=== PATIENT | male | born 1965 | race Caucasian/White ===

== ENCOUNTER 2022-07-02 08:07 | Outpatient (REF) | payer BC, SELFPAY ==
[2022-07-02 11:02] LABS: MANUAL DIFF FLAG NO
[2022-07-02 11:27] LABS: Basophils Percent Auto 0.7 % (0-2); Eosinophils Absolute Auto 0.2 X10*3/uL (0.0-0.4); Hematocrit 43.3 % (42.0-52.0); Imm Gran Abs Auto 0.01 X10*3/uL (0.00-0.03); Imm Gran Pct Auto 0.2 % (0.0-0.4); Lymphocytes Absolute Auto 2.1 X10*3/uL (1.2-4.9); Mean Corpuscular HGB Conc 34.6 g/dl (31.0-36.0); Mean Corpuscular Hemoglobin 35.1 pg (27.0-33.0); Mean Corpuscular Volume 101.4 fL (80.0-98.0); Monocytes Absolute Auto 0.5 X10*3/uL (0.1-1.2); Neutrophils Absolute Auto 1.5 x10*3/uL (2.0-8.3); Neutrophils Percent Auto 35.1 % (45-73); Platelet Count 197 X10*3/uL (160-400); Red Blood Count 4.27 X10*6/uL (4.60-5.80); Red Cell Distribution Width 12.6 % (11.0-16.0); White Blood Count 4.2 X10*3/uL (4.8-10.8)
[2022-07-02 11:53] LABS: Alanine Aminotransferase 73 U/L (0-40); Albumin Level 4.5 g/dL (3.5-5.0); Alkaline Phosphatase 65 U/L (39-117); Anion Gap 14 (12-20); Aspartate Amino Transferase 43 U/L (5-37); Bilirubin Total 0.8 mg/dL (0.0-1.0); Blood Urea Nitrogen 25 mg/dL (9-16); Calcium 9.5 mg/dL (8.4-10.2); Carbon Dioxide 25 mmol/L (22-29); Chloride 104 mmol/L (96-108); Cholesterol 274 mg/dL; Estimated Glomerular Filt Rate > 60; Glucose Fasting 125 mg/dL (60-99); HDL Cholesterol 45 mg/dL; LDL Cholesterol Calculated 201 mg/dl; Potassium 5.1 mmol/L (3.3-5.1); Sodium 138 mmol/L (135-145); Total Protein 7.5 g/dL (6.5-8.0); Triglycerides 143 mg/dL
[2022-07-02 12:01] LABS: TSH reflex Free T4 3.78 uIU/mL (0.32-4.0)
[2022-07-02 12:17] LABS: Rheumatoid Factor < 15.0 IU/mL (<15.0)
[2022-07-02 12:20] LABS: Erythrocyte Sedimentation Rate 7 MM/HR (0-15)
[2022-07-04 15:23] LABS: CRP High Sensitivity 1.7 mg/L
== END 2022-07-02 08:08 | disposition home or self-care (01) ==
LOC: HO.WFDLDS 08:07
PROVIDERS: Visit Provider Family Medicine
DX: Z00.00 Encounter for general adult medical examination without abnormal findings (principal); Z12.5 Encounter for screening for malignant neoplasm of prostate; M19.90 Unspecified osteoarthritis, unspecified site
CPT/HCPCS: 36415; 80053; 80061; 84153; 84443; 85025; 85652; 86141; 86431

== ENCOUNTER 2022-10-18 08:41 | Outpatient (REF) | payer BC, SELFPAY ==
[2022-10-18 12:20] LABS: Estimated Average Glucose 126 mg/dL
[2022-10-18 12:32] LABS: Alanine Aminotransferase 53 U/L (0-40); Albumin Level 4.4 g/dL (3.5-5.0); Alkaline Phosphatase 68 U/L (39-117); Anion Gap 12 (12-20); Aspartate Amino Transferase 35 U/L (5-37); Bilirubin Total 1.5 mg/dL (0.0-1.0); Blood Urea Nitrogen 16 mg/dL (9-16); Calcium 9.5 mg/dL (8.4-10.2); Carbon Dioxide 26 mmol/L (22-29); Chloride 107 mmol/L (96-108); Cholesterol 123 mg/dL; Estimated Glomerular Filt Rate > 60; Glucose Fasting 108 mg/dL (60-99); HDL Cholesterol 32 mg/dL; LDL Cholesterol Calculated 76 mg/dl; Potassium 5.1 mmol/L (3.3-5.1); Sodium 140 mmol/L (135-145); Total Protein 6.9 g/dL (6.5-8.0); Triglycerides 75 mg/dL
== END 2022-10-18 08:42 | disposition home or self-care (01) ==
LOC: HO.WFDLDS 08:41
PROVIDERS: Visit Provider Family Medicine
DX: Z00.00 Encounter for general adult medical examination without abnormal findings (principal); E78.5 Hyperlipidemia, unspecified; R73.01 Impaired fasting glucose; R74.8 Abnormal levels of other serum enzymes
CPT/HCPCS: 36415; 80053; 80061; 83036

== ENCOUNTER 2023-07-19 08:02 | Outpatient (REF) | payer BC, SELFPAY ==
[2023-07-19 09:18] LABS: Alanine Aminotransferase 69 U/L (0-40); Albumin Level 4.3 g/dL (3.5-5.0); Alkaline Phosphatase 96 U/L (39-117); Anion Gap 12 (12-20); Aspartate Amino Transferase 43 U/L (5-37); Bilirubin Total 0.9 mg/dL (0.0-1.0); Blood Urea Nitrogen 13 mg/dL (9-16); Calcium 9.1 mg/dL (8.4-10.2); Carbon Dioxide 26 mmol/L (22-29); Chloride 106 mmol/L (96-108); Cholesterol 148 mg/dL (<200); Estimated Average Glucose 148 mg/dL; Estimated Glomerular Filt Rate > 60; Glucose Fasting 133 mg/dL (60-99); HDL Cholesterol 37 mg/dL (>40); Hemoglobin A1c % 6.8 % (<6.0); LDL Cholesterol Calculated 97 mg/dL (<100); Potassium 4.4 mmol/L (3.3-5.1); Sodium 140 mmol/L (135-145); Total Protein 7.2 g/dL (6.5-8.0); Triglycerides 72 mg/dL (<150)
[2023-07-19 09:49] LABS: Microalbum/Creatinine Ratio Ur 8.1 ug/mg cr (<30)
== END 2023-07-19 08:03 | disposition home or self-care (01) ==
LOC: HO.LAB 08:02
PROVIDERS: PCP Family Medicine; Visit Provider Family Medicine
DX: Z00.00 Encounter for general adult medical examination without abnormal findings (principal); R73.01 Impaired fasting glucose; I10 Essential (primary) hypertension
CPT/HCPCS: 36415; 80053; 80061; 82043; 82570; 83036

== ENCOUNTER 2023-08-15 15:46 | Outpatient (AMB) | payer BC, SELFPAY ==
--- NOTE | 2023-08-15 15:40 | MHC.PC.OV ---
Intake Visit Reasons: f/u labs [phone] Intake Note: Patient is calling to follow up on his labs today. Allergies No Known Allergies Allergy (Verified 08/15/23 15:42) Tobacco use date assessed: 08/15/23 [facility] Surgical History H/O discectomy Social History Housing: House Patient Tobacco Use Status: Never used Tobacco e-Cigarette/Vaping Use: Never Used Second Hand Smoke Exposure: No service: No Current occupational status: employed Current occupational exposures/hazards: No Cognitive needs: No Hearing needs: No Vision needs: No Questionnaire Thrive Questionnaire Date Thrive assessed: 09/24/22 LICHA-7 AMB Questionnaire LICHA-7 Date LICHA - 7 assessed: 09/24/22 Source: Developed by Drs. Catarino Latham, Sarah Arnold, Hans Martinez and colleagues, with an educational danica from [employer]. Review of Systems Const Denies chills, Denies fatigue, Denies fever(s), Denies headache(s) and Denies weakness ENT Denies dizziness and Denies headache(s) Card Denies chest pain, Denies lightheadedness, Denies dyspnea and Denies other (Palpitations) Resp Denies cough, Denies dyspnea, Denies wheezing and Denies other ( shortness of breath) Musc Denies numbness and Denies tingling Neuro Denies dizziness, Denies headache(s), Denies numbness, Denies tingling, Denies paresthesias and Denies weakness Psych Denies anxiety and Denies depression Endo Denies fatigue Aller/Immun Denies wheezing Physical exam (Primary Care) Tobacco/Smoking Status: Tobacco use Status Tobacco use date assessed 08/15/23 08/15/23 15:45 Patient Tobacco Use Status Never used Tobacco 08/15/23 15:45 e-Cigarette/Vaping Use Never Used 08/15/23 15:45 Thrive Assessment: Date of Thrive Assessment Date Thrive assessed 09/24/22 08/15/23 15:45 Const Other: Telemedicine,?audio?only.??No?exam Telehealth Telehealth Location of provider rendering services: practice address Location of patient: address on file Patient Identification confirmed using: Name, : Yes Telehealth method: voice only Patient verbally consented to treatment: Yes Patient verbally consented to billing insurance company: Yes Patient informed of any privacy concerns related to visit: Yes Minutes spent on Phone/Video with Pt.: 13 Assessment and Plan Assessment & Plan (1) Diabetes: Code(s): E11.9 - Type 2 diabetes mellitus without complications Plan: A1c?has?increased?to?6.8%; diabetes?range Patient?has?other?comorbidities?such?as?hyperlipidemia?and?myocarditis. Sent?script?for?metformin?250?mg?b.i.d. Encouraged?a?diet?low?in?sugars?and?starches Encouraged?weight?loss?and?exercise. (2) Hyperlipidemia: Code(s): E78.5 - Hyperlipidemia, unspecified Plan: LDL?cholesterol?is?97.??Recommended?goal?less?than?70 He?is?on?atorvastatin?40?mg?daily?and?I?am?increasing?this?to?80?mg?daily He?will?let?me?know?if?he?has?any?problems Encouraged?a?diet?low?in?saturated?fats?and?cholesterol Encouraged?weight?loss?and?exercise (3) Elevated liver enzymes: Code(s): R74.8 - Abnormal levels of other serum enzymes Plan: Liver?enzymes?have?risen Likely?fatty?liver?disorder?but?this?has?been?ongoing?and?I?am?ordering?an?ultrasound Encouraged?weight?loss Orders: Orders US abdomen diaz w elastography Today R74.8 - Abnormal levels of other serum enzymes Medications: New metformin 250 mg (1/2 x 500 mg) PO BID 30 tabs 2RF 30 days Changed From atorvastatin 40 mg PO BEDTIME 30 days 30 tabs 1RF To atorvastatin 80 mg PO BEDTIME 90 tabs 2RF 90 days Coding Level of Care Code Tele Est Pt Level 2 (80065) Diagnoses Diabetes E11.9 Hyperlipidemia E78.5 Elevated liver enzymes R74.8
== END 2023-08-15 16:45 ==
LOC: HO.HMGFM 15:46
PROVIDERS: PCP Family Medicine; Visit Provider Family Medicine
DX: E11.9 Type 2 diabetes mellitus without complications (principal); E78.5 Hyperlipidemia, unspecified; R74.8 Abnormal levels of other serum enzymes
CPT/HCPCS: 99442

== ENCOUNTER 2023-10-02 12:49 | Outpatient (REF) | payer BC, SELFPAY ==
--- NOTE | ~2023-10-02 | US_ITS ---
EXAMINATION: US ABDOMEN LIMITED WITH LIVER ELASTOGRAPHY CLINICAL INFORMATION: Abnormal levels of serum enzymes. COMPARISON: None available. TECHNIQUE: Real-time imaging of the abdominal viscera. Noninvasive ultrasound liver fibrosis assessment is performed using Gosia ElastPQ point quantification shear wave elastography (2D-SWE) with a C5-2 MHz transducer. Multiple elastography samples are obtained. FINDINGS: PANCREAS: Largely obscured by overlying bowel gas. LIVER: Normal. The liver demonstrates normal size, contour and echogenicity. No focal lesion or intrahepatic biliary duct dilatation. The right lobe measures 14.0 cm in length. The left lobe measures 9.2 cm in length. Portal flow is towards the liver (hepatopetal). Shear wave liver elastography median stiffness is 1.34 m/s (reference: normal median stiffness is 1.3 m/s or less). IQR/median stiffness to assess sampling precision is 0.05 (reference: good quality data set is IQR/median stiffness of 0.15 or less). GALLBLADDER: Normal. The gallbladder is physiologically distended without evidence of stones, sludge, polyps, wall thickening or pericholecystic fluid. COMMON BILE DUCT: Normal in caliber measuring 0.3 cm in diameter. RIGHT KIDNEY: At the lower pole, a 1.5 cm benign, simple cyst is seen, which requires no imaging follow-up. No hydronephrosis. No renal calculi or focal parenchymal lesions. The kidney measures 10.9 cm in maximum dimension. FREE FLUID: None. US/US abdomen diaz w elastography IMPRESSION: 1. There is generalized increase in hepatic echotexture, consistent with fatty infiltration or hepatocellular disease. Please correlate clinically. No focal hepatic mass or intrahepatic biliary dilatation is seen. 2. Liver elastography: In the absence of other known clinical signs, measurements rule out compensated advanced chronic liver disease. If there are known clinical signs, further testing may be needed for confirmation. 3. Technically limited ultrasound examination of the pancreas. REFERENCE: Society of Radiologists in Ultrasound Liver Stiffness Thresholds (2020): LIVER STIFFNESS THRESHOLDS: *Liver Stiffness equal or less than 1.3 m/s: High probability of being normal. *Liver Stiffness less than 1.7 m/s: In the absence of other known clinical signs, rules out compensated advanced chronic liver disease. *Liver Stiffness 1.7-2.1 m/s: Suggestive of compensated advanced chronic liver disease but need further test for confirmation. *Liver Stiffness over 2.1 m/s: Rules in compensated advanced chronic liver disease. *Liver Stiffness over 2.4 m/s: Suggestive of clinically significant portal hypertension. QUALITY OF DATA SET: *IQR/Median value equal or less than 0.15 implies a quality data set. *IQR/Median value over 0.15 implies a poor quality data set. SIGNIFICANT CHANGE FROM PRIOR EXAM: Significant change if liver stiffness measurement is 10% or greater from prior exam. OTHER CONSIDERATIONS: The stage of liver fibrosis may be overestimated in the setting of acute hepatitis, liver inflammation, elevated liver function tests, hepatic vascular congestion, obstructive cholestasis, non-fasting state, and infiltrative diseases such as amyloidosis and lymphoma. In some patients with NAFLD, the liver stiffness thresholds for compensated advanced chronic liver disease may be lower. In causes other than viral hepatitis and NAFLD, liver stiffness thresholds are not well established.
== END 2023-10-02 12:50 | disposition home or self-care (01) ==
LOC: HO.US 12:49
PROVIDERS: PCP Family Medicine; Visit Provider Family Medicine
DX: R74.8 Abnormal levels of other serum enzymes (principal)
CPT/HCPCS: 76705; 76981

== ENCOUNTER 2024-07-20 16:30 | Outpatient (AMB) | payer BC, SELFPAY ==
--- NOTE | 2024-07-20 16:32 | A.OFFPC_ITS ---
Vital Signs 07/20/24 16:36 Height 6 ft Weight 223 lb 6 oz BMI 30.3 BP 116/70 Blood Pressure Location Rt brachial Position Sitting Respiration 16 Pulse 57 Pulse Source Pulse Oximeter Temp 98.2 F Temp Source Oral Pulse Oximetry (%) 98 Oxygen Delivery Method Room Air Intake Visit Reasons: Med F/Up Intake Note: med follow up Allergies No Known Allergies Allergy (Verified 07/20/24 16:36) Tobacco use date assessed: 08/15/23 HPI Med F/Up HPI Details 58 y/o male presents to f/u chronic cond itions. Had started him on metformin for new diagnosis of diabetes. A1c was 6.8%. Had increased artovastatin as he has hx of HLD and myocarditis and LDL cholesterol was 97. No recent labs to review. Blood pressure today 138/54, 68p. He is on lisinopril 20mg, metoprolol [place] val[place]-hydrochlorothiazide 25-12.5mg PFSH Surgical History H/O discectomy Social History Housing: House Patient Tobacco Use Status: Never used Tobacco e-Cigarette/Vaping Use: Never Used Second Hand Smoke Exposure: No service: No Current occupational status: employed Current occupational exposures/hazards: No Cognitive needs: No Hearing needs: No Vision needs: No Questionnaire PHQ-9 Over the last 2 weeks, how often have you been bothered by any of the following problems? 1. Little interest or pleasure in doing things: not at all 2. Feeling down, depressed, or hopeless: not at all 3. Trouble falling or staying asleep, or sleeping too much: not at all 4. Feeling tired or having little energy: not at all 5. Poor appetite or overeating: not at all 6. Feeling bad about yourself - or that you are a failure or have let yourself or your family down: not at all 7. Trouble concentrating on things, such as reading the newspaper or watching television: not at all 8. Moving or speaking so slowly that other people could have noticed. Or the opposite - being so fidgety or restless that you have been moving around a lot more than usual: not at all 9. Thoughts that you would be better off or of hurting yourself in some way: not at all Total score: 0 Source: Developed by Drs. Catarino Latham, Sarah Arnold, Hans Martinez and colleagues, with an educational danica from [employer]. Thrive Questionnaire Date Thrive assessed: 09/24/22 I am a: Patient What is your living situation today?: I have a steady place to live Within the past 12 months, did the food you bought not last and you didn't have the money to get more?: Never true Within the past 12 months, did you worry whether your food would run out before you got money to buy more?: Never true Do you have trouble paying for medicines?: No Do you have trouble getting transportation to medical appointments?: No Do you have trouble paying your heating and electricity bill?: No Do you have trouble taking care of your child, family member or friend?: No Do you have trouble with day-to-day activities such as bathing, preparing meals, shopping, managing finances, etc.?: No Are you currently unemployed and looking for a job?: No Are you interested in more education?: No Please select the resources that you would like help with: None Currently or been in a relationship where the following occur: No concerns reported THRIVE Score: 0 AUDIT C Alcohol Use Questionnaire (AUDIT-C) 1. How often do you have a drink containing alcohol?: Monthly or less 2. How many drinks containing alcohol do you have on a typical day when you are drinking?: 1 or 2 3. How often do you have six or more drinks on one occasion?: Never Total Score: 1 LICHA-7 AMB Questionnaire LICHA-7 Date LICHA - 7 assessed: 09/24/22 Feeling nervous, anxious, or on edge: 0 = Not at all Not being able to stop or control worryin = Not at all Worrying too much about different things: 0 = Not at all Trouble relaxin = Not at all Being so restless that it is hard to sit still: 0 = Not at all Becoming easily annoyed or irritable: 0 = Not at all Feeling afraid as if something awful might happen: 0 = Not at all Total LICHA-7 score (0-4 normal; 5-9 mild; 10-14 moderate; 15-21 severe): 0 Source: Developed by Drs. Catarino Latham, Sarah Arnold, Hans Martinez and colleagues, with an educational danica from [employer]. Review of Systems Const Denies chills, Denies fatigue, Denies fever(s), Denies headache(s) and Denies weakness ENT Denies dizziness and Denies headache(s) Card Denies dyspnea Resp Denies cough, Denies dyspnea, Denies wheezing and Denies other (shortness of breath) Musc Denies numbness and Denies tingling Neuro Denies dizziness, Denies headache(s), Denies numbness, Denies tingling and Denies weakness Psych Denies anxiety and Denies depression Endo Denies fatigue Aller/Immun Denies wheezing Physical exam (Primary Care) Vital Signs: Last Vital Signs Temp 98.2 F 07/20/24 16:36 Pulse 57 07/20/24 16:36 Resp 16 07/20/24 16:36 BP 116/70 07/20/24 16:36 Pulse Ox 98 07/20/24 16:36 Oxygen Delivery Method Room Air 07/20/24 16:36 BMI result Body Mass Index 30.3 Tobacco/Smoking Status: Tobacco use Status Tobacco use date assessed 08/15/23 07/20/24 16:35 Patient Tobacco Use Status Never used Tobacco 07/20/24 16:35 e-Cigarette/Vaping Use Never Used 07/20/24 16:35 PHQ-9: PHQ-9 Score PHQ-9: Total score 0 07/20/24 16:35 Thrive Assessment: Date of Thrive Assessment Date Thrive assessed 09/24/22 07/20/24 16:35 Currently or been in a relationship where the following occur: No concerns reported Const General: well developed; No acute distress Nutritional Appearance: well nourished Orientation/consciousness: patient oriented x3 HENMT Head: Yes normocephalic and Yes atraumatic Eyes General: appearance normal, both eyes and all related structures Pupils: Equal, round and reactive pupils present EOM: EOMs intact bilaterally Resp Effort & Inspection: normal respiratory effort Neuro General: patient oriented x3 and gait normal Cranial nerves: Yes Equal, round and reactive pupils present Psych Affect: normal affect Coding Level of Care Code Est Pt Level 4 (18956) Diagnoses Diabetes E11.9 Hypertension I10 Elevated liver enzymes R74.8 Assessment & Plan Assessment & Plan (1) Diabetes: Code(s): E11.9 - Type 2 diabetes mellitus without complications Category: Medical Plan: A1c?has?climbed?to?7.8%. 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 (3) Elevated liver enzymes: Code(s): R74.8 - Abnormal levels of other serum enzymes Category: Medical Plan: History?of?elevated?liver?enzymes.??Ultrasound?showed?hepatic?steatosis Encouraged?weight?loss Orders: Orders Lipid Panel Today E78.5 - Hyperlipidemia, unspecified, Z00.00 - Encounter for general adult medical examination without abnormal findings UA and rflx microscopic Today I10 - Essential (primary) hypertension, Z00.00 - Encounter for general adult medical examination without abnormal findings TSH reflex Free T4 Today I10 - Essential (primary) hypertension, Z00.00 - Encounter for general adult medical examination without abnormal findings Comprehensive [place]. Panel Fast Today R74.8 - Abnormal levels of other serum enzymes, Z00.00 - Encounter for general adult medical examination without abnormal findings Microalbumin, Random (w Creat) Today I10 - Essential (primary) hypertension Prostate Specific Antigen Scr Today Z12.5 - Encounter for screening for malignant neoplasm of prostate Medications: New semaglutide (Ozempic) for 4 weeks 0.25 mg (0.368 mL) subcut QWEEK 28 days 1.472 mL 3RF
[2024-07-20 16:36] VITALS: BP 116/70; PULSE 57; RESP 16; TEMP 36.8; O2SAT 98; BMI 30.3
== END 2024-07-20 17:05 ==
PROVIDERS: PCP Family Medicine; Visit Provider Family Medicine
DX: E11.9 Type 2 diabetes mellitus without complications (principal); I10 Essential (primary) hypertension; R74.8 Abnormal levels of other serum enzymes

== ENCOUNTER 2024-08-04 10:43 | Outpatient (REF) | payer BC, SELFPAY ==
[2024-08-04 14:29] LABS: Appearance Urine Clear; Color Urine Yellow; Glucose Urine UA Negative (Negative); Leukocyte Esterase Urine Negative (Negative); Nitrite Urine Negative (Negative); PH 5.5 (5.0-9.0); Specific Gravity - Urine 1.015 (1.005-1.025); Urine Blood Negative (Negative); Urine Ketones Negative (Negative); Urine Protein Negative (Neg-Trace)
[2024-08-04 14:42] LABS: Alanine Aminotransferase 127 U/L (0-40); Albumin Level 4.5 g/dL (3.5-5.0); Alkaline Phosphatase 79 U/L (39-117); Anion Gap 15 (12-20); Aspartate Amino Transferase 74 U/L (5-37); Bilirubin Total 0.9 mg/dL (0.0-1.0); Blood Urea Nitrogen 13 mg/dL (9-16); Calcium 10.4 mg/dL (8.4-10.2); Carbon Dioxide 26 mmol/L (22-29); Chloride 104 mmol/L (96-108); Cholesterol 129 mg/dL (<200); Estimated Glomerular Filt Rate > 60; Glucose Fasting 120 mg/dL (60-99); HDL Cholesterol 37 mg/dL (>40); LDL Cholesterol Calculated 69 mg/dL (<100); Potassium 4.2 mmol/L (3.3-5.1); Sodium 141 mmol/L (135-145); Total Protein 7.5 g/dL (6.5-8.0); Triglycerides 118 mg/dL (<150)
[2024-08-04 14:53] LABS: Prostate Specific Antigen Scr 0.37 ng/mL (<0.05-4.0)
[2024-08-04 15:01] LABS: Creatinine Urine 114.28 mg/dL; Microalbum/Creatinine Ratio Ur 10.5 ug/mg cr (<30)
== END 2024-08-04 10:44 | disposition home or self-care (01) ==
LOC: HO.WFDLDS 10:43
PROVIDERS: Visit Provider Family Medicine
DX: Z00.00 Encounter for general adult medical examination without abnormal findings (principal); E78.5 Hyperlipidemia, unspecified; I10 Essential (primary) hypertension; R74.8 Abnormal levels of other serum enzymes; Z12.5 Encounter for screening for malignant neoplasm of prostate
CPT/HCPCS: 36415; 80053; 80061; 81003; 82043; 82570; 84153; 84443

== ENCOUNTER → 2024-08-26 16:50 | Outpatient (BNVA) | payer BC, SELFPAY | PROVIDERS: PCP Family Medicine; Visit Provider Family Medicine ==

== ENCOUNTER → 2024-08-26 16:50 | Outpatient (AMB) | payer BC, SELFPAY ==
--- NOTE | 2024-08-26 16:48 | MHC.PC.OV ---
Intake Visit Reasons: 1965 Intake Note: lab review Allergies No Known Allergies Allergy (Verified 08/26/24 16:50) Tobacco use date assessed: 08/15/23 HPI 1965 HPI Details Patient?presents?by?telemedicine?follow-up?for?diabetes,?hyperlipidemia?and?elevated?liver?enzymes Tolerating?Ozempic.??Had?gained?weight?rather?time?of?blood?draw?for?lab?work?but?since?then?has?lost?about?for?5?lb?again. Liver?enzymes?are?higher.??He?had?a?liver?ultrasound?in?September. Cholesterol?levels?are?improved?except?HDL?which?is?still?slightly?low?at?37 Patient?feels?well.??No?new?complaint PFSH Surgical History H/O discectomy Social History Housing: House Patient Tobacco Use Status: Never used Tobacco e-Cigarette/Vaping Use: Never Used Second Hand Smoke Exposure: No service: No Current occupational status: employed Current occupational exposures/hazards: No Cognitive needs: No Hearing needs: No Vision needs: No Questionnaire Thrive Questionnaire Date Thrive assessed: 09/24/22 LICHA-7 AMB Questionnaire LICHA-7 Date LICHA - 7 assessed: 09/24/22 Source: Developed by Drs. Catarino Latham, Sarah Arnold, Hans Martinez and colleagues, with an educational danica from [employer]. Review of Systems Const Denies chills, Denies fatigue, Denies fever(s), Denies headache(s) and Denies weakness ENT Denies dizziness and Denies headache(s) Card Denies chest pain, Denies lightheadedness, Denies dyspnea and Denies other (Palpitations) Resp Denies cough, Denies dyspnea, Denies wheezing and Denies other ( shortness of breath) Musc Denies numbness and Denies tingling Neuro Denies dizziness, Denies headache(s), Denies numbness, Denies tingling, Denies paresthesias and Denies weakness Psych Denies anxiety and Denies depression Endo Denies fatigue Aller/Immun Denies wheezing Physical exam (Primary Care) Tobacco/Smoking Status: Tobacco use Status Tobacco use date assessed 08/15/23 08/26/24 16:51 Patient Tobacco Use Status Never used Tobacco 08/26/24 16:51 e-Cigarette/Vaping Use Never Used 08/26/24 16:51 Thrive Assessment: Date of Thrive Assessment Date Thrive assessed 09/24/22 08/26/24 16:51 Telehealth Telehealth Telehealth Platform: Telephone Location of provider rendering services: practice address Location of patient: address on file Patient Identification confirmed using: Name, : Yes Telehealth method: voice only Patient verbally consented to treatment: Yes Patient verbally consented to billing insurance company: Yes Patient informed of any privacy concerns related to visit: Yes Minutes spent on Phone/Video with Pt.: 6 Coding Level of Care Code Tele Est Pt Level 2 (82305) Diagnoses Diabetes E11.9 Low HDL (under 40) E78.6 Elevated liver enzymes R74.8 Assessment & Plan Assessment & Plan (1) Diabetes: Code(s): E11.9 - Type 2 diabetes mellitus without complications Category: Medical (2) Low HDL (under 40): Code(s): E78.6 - Lipoprotein deficiency Category: Medical (3) Elevated liver enzymes: Code(s): R74.8 - Abnormal levels of other serum enzymes Category: Medical Plan A1c?shows?good?control.??Goal?is?less?than?7.0%. He?is?taking?Ozempic?0.25?mg?weekly?and?tolerating?this?well.??He?does?not?notice?any?appetite?suppression. He?had?gained?weight?and?says?more?recently?he?is?lost?a?few?lb. Will?increase?Ozempic?to?0.5?mg?weekly Liver?enzymes?are?elevated?and?may?coincide?with?weight?gain.??As?above,?he?has?more?recently?lost?some?weight?and?I?encouraged?him?to?continue?this He?has?had?an?ultrasound?of?his?liver?in?September?which?showed?fatty?liver?disease. Will?see?how?he?is?doing?with?weight?loss?at?his?next?visit?in?likely?recheck?liver?enzymes?as?of?visit Cholesterol?levels?have?improved?though?his?HDL?is?still?a?bit?low.??Encouraged?exercise Will?continue?to?monitor
--- OUTSIDE RECORDS SUMMARY | 2024-08-26 18:54 | XMS_ITS | Continuity of Care Document ---
Author Organization [facility] Address [address] [place] [id number]- Care Team Providers Care Security Operations Manager Name Role Phone Abelino Nash MD Primary Care Physician Encounter [facility] Date(s): 07/26/24 - 08/25/24 [facility] [address] [place] [id number]- Attending Physician: Jose Rouse Admitting Physician: Jose Rouse Referring Physician: Jose Rouse Encounter Type: Triage Allergies, Adverse Reactions, Alerts No Known Allergies Immunizations Given and Recorded Vaccine Date Status Refusal Reason influenza virus vaccine, inactivated 06/06/22 Give n Medications aspirin 81 mg oral delayed release tablet 1 tablet = 81 mg, By Mouth, Daily, # 90 tablet, 0 Refills, Maintenance, 03/06/23 4:04:00 PM EDT, CR Tablet, Partial fill upon patient request if the prescription is for a schedule II opioid drug. Start Date: 03/06/23 Status: Ordered Quantity: 90.0 Unit: tablet Repeat number: 1 atorvastatin 40 mg oral tablet 1 tablet = 40 mg, By Mouth, Daily, 0 Refills, Maintenance, 09/11/22 1:57:00 PM EST, Partial fill uponpatient request if the prescription is for a schedule II opioid drug. Start Date: 09/11/22 Status: Ordered Repeat number: 1 lisinopril 10 mg oral tablet 10 mg, 1, tablet, By Mouth, Daily, 10-15 mg per md order 1 x daily in evening, Refills 0, Maintenance, 10/17/22 8:21:00 AM EST, Partial fill upon patient request if the prescription is for a schedule II opioid drug. Start Date: 10/17/22 Status: Ordered Repeat number: 1 meloxicam 15 mg oral tablet 1 tablet = 15 mg, By Mouth, Daily, 0 Refills, Maintenance, 09/11/22 1:57:00 PM EST, Partial fill uponpatient request if the prescription is for a schedule II opioid drug. Start Date: 09/11/22 Status: Ordered Repeat number: 1 Metoprolol Succinate ER 50 mg oral tablet, extended release 2 tablet, By Mouth, Daily, # 180 tablet, 1 Refills, Maintenance, 03/08/24 12:28:00 PM EDT, [id number], 184, cm, 07/28/23 8:15:00 EST, Height, 90, kg, 02/27/23 14:59:00 EDT, Dry Weight Start Date: 03/08/24 Status: Ordered Quantity: 180.0 Unit: tablet Repeat number: 1 Social History Social History Type Response Smoking Status Former smoker, quit more than 30 days ago entered on: 03/06/23 Sex Sex Representation Male (finding) Patient Care team information Care Team Personnel Name: Abelino Nash MD Position: [facility] Outreach Member Role: PCP Address: [address] [place] [address] Telecom: Name: Karen Gamboa LPN Position: [facility] RN Member Role: Primary Care Nurse Care Team Related Persons Name: ROD NAQVI Name: BRUNO DUNLAP Insurance Providers Guarantor name: [facility] Health Plan Information #: 1 Payer: [employer] Member Number: NA Policy Number: NA Group Number: NA
== END ==
LOC: HO.HMCFM 16:50
PROVIDERS: PCP Family Medicine; Visit Provider Family Medicine
DX: E11.9 Type 2 diabetes mellitus without complications (principal); E78.6 Lipoprotein deficiency; R74.8 Abnormal levels of other serum enzymes